=== PATIENT | female | born 1945 | race Caucasian/White ===

== ENCOUNTER → 2017-03-29 | Outpatient (CLI) | payer BC ==
--- NOTE | 2017-03-29 12:49 | RAD ---
Indication right hip pain. AP and frog leg views of the right hip were obtained. No prior imaging of the hip is available. Bony mineralization appears normal. Significant degenerative changes involving the hip are not apparent on plain films. Mild degenerative change is seen at the symphysis. IMPRESSION: No acute or significant finding seen involving the right hip on plain films
== END | disposition home or self-care (01) ==
LOC: RAD 09:27
PROVIDERS: ATTEND Family Medicine
DX: M25.551 Pain in right hip (principal)
CPT/HCPCS: 73502

== ENCOUNTER → 2018-02-18 | Outpatient (CLI) | payer BC ==
[~2018-02-18] MED LIST: BUPIVACAINE MPF 0.5% 10 ML VIAL for KCIC. IM ONE; ESTR1TAB15 PO; HYDR25TA9 PO; IOHEXOL 300 MG/ML 50 ML VIAL. INT ART ONE; LIDOCAINE 1% Multi-Dose 20 ML VIAL. ID ONE; LORA10TA3 PO; OMEP20TA63 PO; PRAV40TA2 PO; PROAIR HFA8.5 GM INH; VIT1CAPS12 PO; methylPREDNISolone ACETATE 40 MG/ML VIAL. INT ART ONE
--- NOTE | 2018-02-18 13:39 | KCIC ---
EXAM: Right hip joint injection WITH Fluoroscopic guidance DATE: 02/18/2018 10:30 AM CLINICAL HISTORY: Right hip pain COMPARISON: None pertinent TECHNIQUE: The patient was informed of the indications and alternatives for this procedure as well as risks and benefits. No immediate contraindication identified. The patient provided informed, written consent. Laterality was confirmed by the entire team following a time out. Following initial right hip joint localization, a suitable area was sterilely prepped and draped. Local anesthesia was administered with 1% xylocaine. With intermittent fluoroscopic observation, a 22-gauge spinal needle was advanced into the right hip joint sheath/capsule with confirmation of intra-synovial position with infusion of less than 1 cc iodinated contrast. Subsequent infusion 4 cc lidocaine 1%, 4 cc bupivacaine 0.25%, and 1 cc of 80 mg/ml Depo-Medrol. Hemostasis with local pressure. Local clinical exam negative for immediate complication. Patient informed re local potential signs or symptoms that may indicate need to return to ER/Ordering physician for further evaluation. Patient informed re precautionary measures after intra-synovial injection of anesthetic. Patient informed re potential for short term increase local symptomatology due to steroid flare. Patient expressed understanding. Performing Physicians: Dr. Charli Almendarez Blood Loss: 0 cc Pre-procedural Pain Scale: 5 Post-procedural Pain Scale: 5 Total Fluoroscopy time: 13 seconds Total spot images taken: 0 Total fluoroscopy image save images: 1 IMPRESSION: Successful intra-synovial injection right hip joint with steroid and anesthetic per clinical request. Electronically signed by: Yann Almendarez MD (02/18/2018 1:36 PM) [id number]
== END | disposition home or self-care (01) ==
LOC: KCIC 10:06
PROVIDERS: ATTEND Orthopaedic Surgery Sports Medicine
DX: M25.551 Pain in right hip (principal); Z88.2 Allergy status to sulfonamides; Z88.1 Allergy status to other antibiotic agents; Z88.8 Allergy status to other drugs, medicaments and biological substances
CPT/HCPCS: 20610; 77002; J1030; Q9967